=== PATIENT | female | born 1985 | race Caucasian/White ===

== ENCOUNTER 2018-07-04 20:06 | Emergency (ER) | payer SELFPAY ==
[2018-07-04 20:29] VITALS: RESP 18
--- NOTE | 2018-07-04 21:49 | ED PDOC ---
HPI: General Adult Time Seen by Provider: 07/04/18 21:44 Chief Complaint (Nursing): ENT Problem Chief Complaint (Provider): ENT problem History Per: Patient History/Exam Limitations: no limitations Onset/Duration Of Symptoms: Days (3x days) Current Symptoms Are (Timing): Still Present Additional Complaint(s): 32 year old female currently (last menstrual period February 26, 2018) presents to the ED for an evaluation of right ear pain that started x3 days ago. Patient reports that the pain radiates to her teeth and jaw. Patient reports taking Tylenol with no relief (last dose was 1x hour prior to arrival). Patient reports having mild throat pain and a dry cough as well. Otherwise: (-) fevers/chills, (-) related complaints. PMD: [facility] [place]. Past Medical History Reviewed: Historical Data, Nursing Documentation, Vital Signs Vital Signs: Last Vital Signs Temp 98.4 F 07/04/18 20:26 Pulse 101 H 07/04/18 20:26 Resp 18 07/04/18 20:26 BP 102/60 07/04/18 20:26 Pulse Ox 98 07/04/18 20:26 ELYSIA Report Viewed: Yes - Medical History PMH: No Chronic Diseases - Surgical History Surgical History: No Surg Hx - Family History Family History: States: No Known Family Hx - Social History Current smoker - smoking cessation education provided: No Alcohol: None Drugs: Denies - Home Medications Home Medications: Ambulatory Orders Medication Instructions Recorded Acetaminophen [Acetaminophen 8 650 mg PO Q8 PRN #21 tablet.er 07/04/18 Hour] RX: Amoxicillin 875 mg PO BID #14 tablet 07/04/18 - Allergies Allergies/Adverse Reactions: Allergies Allergy/AdvReac Type Severity Reaction Status Date / Time No Known Allergies Allergy Verified 07/04/18 20:26 Review of Systems ROS Statement: Except As Marked, All Systems Reviewed And Found Negative Constitutional: Negative for: Fever ENT: Positive for: Ear Pain (right), Throat Pain Respiratory: Positive for: Cough Gastrointestinal: Negative for: Abdominal Pain Physical Exam - Reviewed Nursing Documentation Reviewed: Yes Vital Signs Reviewed: Yes - Physical Exam Comments: GENERAL APPEARANCE: Patient is awake, alert, oriented x 3, in no acute distress. Resting comfortably. SKIN: Warm, dry; (-) cyanosis. ENMT: Canals : (-) cerumen impaction. TMs: Right TM: (+) bulging and (+) faintly erythematous, Left TM: (+) erythematous, non bulging, (-)effusion, (-) perforation,(-) vesicles. Frontal / maxillary sinuses : (-) tenderness. (-) TMJ tenderness. Pharynx: uvula midline (+) faintly erythematous, (-) exudate, (-) hypertrophy. Airway patent: (-) stridor. NECK: Supple, FROM (-) stiffness, (-) tenderness, (-) lymphadenopathy. LUNGS: clear to auscultation bilaterally, (-) wheezing, (-) rhonchi, (-) wheezing. CARDIAC: RRR ABDOMEN AND GI: Soft; (-) tenderness. - ECG O2 Sat by Pulse Oximetry: 98 (RA) Pulse Ox Interpretation: Normal Medical Decision Making Medical Decision Makin:45 Clinical impression: 32 year old female with otitis media and a sore throat. Initial plan: * amoxil 500 mg Cap 500 mg PO * throat culture * rapid strep group a antigen * reevaluation 2330 Rapid Strep: Negative Repeat HR: 88 On re-evaluation, patient reports improvement of symptoms. On exam, patient remains AAOx3, in no acute distress. Vitals stable. Lab/Diagnostic results d/w the patient in great detail. Diagnosis of otitis media, throat pain d/w the patient. Based on history, exam and diagnostic results, plan will be for outpatient follow up with PMD. Patient instructed to follow-up with pmd / referral provided / the clinic in 1- 2 days without fail. Advised to take medication as prescribed. Return to the emergency room at any time for any new or worsening symptoms. Patient states she fully agrees with and understands discharge instructions. States that she agrees with the plan and disposition. Verbalized and repeated discharge instructions and plan. I have given the patient opportunity to ask any additional questions. Scribe Attestation: Documented byMaren Marie, acting as a scribe for Maren Bustillo Provider Scribe Attestation: All medical record entries made by the Scribe were at my direction and personally dictated by me. I have reviewed the chart and agree that the record accurately reflects my personal performance of the history, physical exam, medical decision making, and the department course for this patient. I have also personally directed, reviewed, and agree with the discharge instructions and disposition. Disposition - Clinical Impression Clinical Impression: Otitis media, Right ear pain, Throat pain in adult - Patient ED Disposition Is Patient to be Admitted: No Counseled Patient/Family Regarding: Studies Performed, Diagnosis, Need For Followup, Rx Given - Disposition [facility] Disposition: Routine/Home Disposition Time: 23:30 Condition: STABLE Additional Instructions: The emergency medical care you received today was directed at your acute symptoms. If you were prescribed any medication, please fill it and take as directed. It may take several days for your symptoms to resolve. Return to the Emergency Department if your symptoms worsen, do not improve, or if you have any other problems. Please contact your doctor in 2 days for re-evaluation and follow up / or call one of the physicians/clinics you have been referred to that are listed on the Patient Visit Information form that is included in your discharge packet. Bring any paperwork you were given at discharge with you along with any medications you are taking to your follow up visit. Our treatment cannot replace ongoing medical care by a primary care provider (PCP) outside of the emergency department. Prescriptions: Acetaminophen [Acetaminophen 8 Hour] 650 mg PO Q8 PRN #21 tablet.er PRN Reason: Pain, Moderate (4-7) RX: Amoxicillin 875 mg PO BID #14 tablet Instructions: Ear Infections (Otitis Media), Sore Throat in Adults Forms: [employer] (Omani) Print Language: YAKUT - POA Present On Arrival: None Results - Lab Results Lab Results: 07/04/18 22:50 Grp A Beta Strep Ag Negative
[2018-07-04 23:37] VITALS: BP 110/64; PULSE 88; TEMP 98.1
[2018-07-08 04:42] VITALS: O2SAT 98
== END 2018-07-04 23:37 | disposition home or self-care (01) ==
LOC: H.ER 20:06
DX: H66.91 Otitis media, unspecified, right ear (principal); R07.0 Pain in throat

== ENCOUNTER 2018-11-19 08:00 | Emergency (ER) | payer SELFPAY ==
[2018-11-19 09:31] VITALS: BMI 23.7
[2018-11-19] MEDS ORDERED: Lactated Ringer's 1,000 ML IV SCH (09:45)
[2018-11-19 21:55] VITALS: BP 109/67; PULSE 70; RESP 18; TEMP 98.2; O2SAT 100
== END 2018-11-19 13:15 | disposition home or self-care (01) ==
LOC: H.EROB2 08:00
DX: O26.93 Pregnancy related conditions, unspecified, third trimester (principal); R10.2 Pelvic and perineal pain; M54.9 Dorsalgia, unspecified; Z3A.38 38 weeks gestation of pregnancy
CPT/HCPCS: 96360; 99283; J7120

== ENCOUNTER 2018-11-26 18:15 | Inpatient (IN) | payer MEDICAID, SELFPAY ==
[2018-11-26] MEDS ORDERED: Lactated Ringer's 1,000 ML IV ONE (19:04)
[2018-11-26 19:08] VITALS: BMI 24.0
[2018-11-26] MEDS ORDERED: Oxytocin 30 UNIT in NS 500 ml 30 UNITS/500 ML BAG IV ONE (19:09)
[2018-11-26] MEDS ORDERED: OXYTOCIN/0.9 % NS 20 UNIT/1,000 ML BAG IV ONE (19:10)
[2018-11-26] MEDS ORDERED: Lactated Ringer's 1,000 ML IV SCH (19:15)
[2018-11-26 19:40] LABS: BASO % 0.2 % (0.0-2.0); EOS # 0.1 K/uL (0.0-0.7); EOS % 0.5 % (0.0-4.0); HEMOGLOBIN 11.2 g/dL (12.0-16.0); LYMPH # 1.6 K/uL (1.0-4.3); LYMPH % 15.8 % (20.0-40.0); MEAN CELL VOLUME 90.4 fl (81.0-99.0); MEAN CORPUSCULAR HEMOGLOBIN 29.2 pg (27.0-31.0); MEAN CORPUSCULAR HGB CONC 32.3 g/dL (33.0-37.0); MEAN PLATELET VOLUME 12.4 fl (7.2-11.7); MONO # 0.9 K/uL (0.0-0.8); MONO % 8.5 % (0.0-10.0); NEUT # 7.7 K/uL (1.8-7.0); RBC 3.83 Mil/uL (3.80-5.20); RED CELL DISTRIBUTION WIDTH 15.1 % (11.5-14.5); WHITE BLOOD COUNT 10.3 K/uL (4.8-10.8)
--- NOTE | 2018-11-26 19:53 | OBHP ---
Datetime: 11/26/2018 19:37 IP Adm Impression: Term, intrauterine ; Intact Membranes IP Admit Plan: Admit to unit; Initiate labor protocol Admit Comment, IP Provider: Pt is a 33 yo IUP at EGA 39Wks EDC 12/03/18 based on LMP of 02/26/18 confirmed with 1st U/S done 06/09/18 presents to EDOB with c/o of contractions, that began at 7 AM w ere [id number], at 4pm they became Q5mins. Reports light pink vaginal bleeding. Denies LOF, Reports good movement. Pt reports she was told she should be induced at 39wks by MFM due to Gest DM. Denies fever, chills, PAGAN, dizziness, blurry vision, chest pain, SOB, N/V/D/C, dysuria, ROS: unremarkable, except as per HPI. Provider: [facility]- Dr. Momin OBALEXANDRAN: Gest DM, 2013 (no DM or complications), 1 IAB 08/2015, Pap NILM 07/11/18 PMH: Anemia FMH: Denies SURG: Denies ALL: NKDA SOCHx: Denies ETOH/drugs/Smoking MEDS: Vit, Ferrous Sulfate, Was taking Metformin 500mg BID last took at 35wks reports she was told she could stop LABS: HIV, HBsAg, GBS, GC/CHL, RPR all unremarkable. Rubella- Immune, AB +. PE GEN: NAD HEENT: NCAT RESP: CTA b/l, no wheezes rales or rhonchi CV: RRR, S1 S2 normal ABD: Gravid, BS + normal, soft to palpation, no tendernesss LE: No edema Bimanual- 3-4cm bulging membranes, 80% effaced, -1 station A/P Pt is a 33 yo IUP at EGA 39Wks EDC 12/03/18 based on LMP of 02/26/18 confirmed with 1st U/S do ne 06/09/18 presents to EDOB with c/o of contractions Q5mins apart Plan: -Admit to L _ D -Initiate Labor protocol -Bimanual- 3-4cm, bulging membranes, 80% effaced, -1 station -FHR and maternal monitoring -Pain control, Fluids -Regular diet -Fingerstick to assess for GDM Case seen and discussed with attending Dr Too Senior PGY1 Attending Note: Patient was seen and examined with resident and I agree with the above assessment. Extremities - PN: Normal Abdomen - PN: Normal Lungs - PN: Normal Heart - PN: Normal HEENT - PN: Normal General - PN: Normal FHR - Baseline A Provider: 140 Membranes, Provider: Bulging Contraction Comments Provider: Q3-5mins Comments, ACOG Physical Exam: GEN: NAD HEENT: NCAT RESP: CTA b/l, no wheezes rales or rhonchi CV: RRR, S1 S2 normal ABD: Gravid, BS + normal, soft to palpation, no tendernesss LE: No edema Bimanual- 3-4cm bulging membranes, 80% effaced, -1 station Pool Provider: Negative IP Hx Assessment: The History has been Reviewed and is Current EGA AdmitDate IP: 39.0 Vital Signs Provider: Reviewed; Within Normal Limits Vital Signs Provider Details: BP 111/72 IP Indication for Induction: Maternal Diabetes IP Chief Complaint: Uterine contractions NICHD Variability Prov Fetus A: Moderate 6-25bpm NICHD Accel Fetus A IP Provider: 15X15 FHR Category Provider Fetus A: Category I NICHD Decel Fetus A IP Provider: None Dilatation, Provider: 3-4 Effacement, Provider: 80 Station, Provider: -1 Datetime: 11/26/2018 19:21 Neurologic - PN: Normal Genitourinary Exam: Normal Datetime: 11/19/2018 09:09 Pelvic Type - PN: Adequate Back - PN: Normal Breast - PN: Not Done Thyroid - PN: Normal DTRs - PN: Not Done
[2018-11-26] MEDS ORDERED: Fentanyl/Bupivacaine HCl 250 ML EPI ONE (20:27)
[2018-11-26] MEDS ORDERED: Bupivacaine HCl 0.25% PF (10 ml) Inj ONE ×2 (21:02→21:58)
--- NOTE | 2018-11-26 21:39 | OBPN ---
Datetime: 11/26/2018 21:34 IP Progress Impression: Normal progression of labor IP Informed Consent Obtain: Vaginal Delivery IP Procedures: Artificial ROM IP Progress Plan: Continue present management Membranes, Provider: Ruptured Amniotic Fluid Color, Provider: Clear Contraction Comments Provider: q 2 mins FHR - Baseline A Provider: 135 IP Progress Note Comment: patient feeling increased pressure VE = 6/100/-1 FHR = 135 mod, +accels, no decels TOCO = no decels A/P 1. Patient progressing well, now 6cm dilated, AROM, clear 2. CEFM and TOCO 3. Re-evalauted as needed 4. Just received epidural for pain NICHD Accel Fetus A IP Provider: [id number] NICHD Variability Prov Fetus A: Moderate 6-25bpm Dilatation, Provider: 6 Effacement, Provider: 100 Station, Provider: -1 NICHD Decel Fetus A IP Provider: None Datetime: 11/26/2018 19:37 Pool Provider: Negative Vital Signs Provider: Reviewed; Within Normal Limits Vital Signs Provider Details: BP 111/72 FHR Category Provider Fetus A: Category I
--- NOTE | 2018-11-26 23:09 | OBDS ---
DELIVERY PERSONNEL Delivery Doctor: Lynette Cherry MD Survey Crew Chief: Analia Ulrich RN Anesthesiologist: Scott MATERNAL INFORMATION Delivery Anesthesia: Epidural Medications in Delivery: Oxytocin Placenta Cultured: No Maternal Complications: None Provider Comments: of live male infant over intact perineum in DAV followed by shoulders and re st of atraumatically, mouth and nose suctioned on mother's chest, cord clamped and cut, placed in warmer, placenta delivered spontaneously, fundus firm, 2nd degree laceration repaired with 2-0 and 3-0 vicryl rapide, EBl =75mL, pt tolerated procedure well LABOR SUMMARY EDC: 12/03/2018 00:00 No. Babies in Womb: 1 Attempted: No Labor Anesthesia: Epidural LABOR INFORMATION Reason for Induction: Not Applicable Onset of Labor: 11/26/2018 07:00 Oxytocin: N/A Group B Beta Strep: Negative Steroids Given: None Reason Steroids Not Administered: Not Applicable MEMBRANES Membranes Rupture Method: Artificial Rupture of Membranes: 11/26/2018 21:12 Amniotic Fluid Color: Clear Amniotic Fluid Amount: Moderate Amniotic Fluid Odor: Normal VAGINAL DELIVERY Episiotomy: None BABY A INFORMATION Method of Delivery: Vaginal Born in Route : No : N/A Forceps: N/A Vacuum Extraction: N/A Shoulder Dystocia : No PRESENTATION/POSITION BABY A Presentation: Cephalic Cephalic Presentation: Vertex PLACENTA INFORMATION BABY A Placenta Method of Delivery: Spontaneous Placenta Status: Delivered INFORMATION BABY A Gestational Age at Delivery: 39.0 Gestational Status: Term Infant Outcome : Liveborn Infant Condition : Stable Infant Sex: Male CORD INFORMATION BABY A No. Cord Vessels: 3 Cord Blood Taken: Yes Infant Suction: None
[2018-11-26] MEDS ORDERED: Oxycodone/Acetaminophen 5/325 mg Tab PO PRN (23:12)
[2018-11-26] MEDS ORDERED: Benzocaine/Menthol SPRAY TOP PRN (23:12)
[2018-11-27] MEDS ORDERED: Benzocaine/Menthol SPRAY TOP PRN (01:15)
[2018-11-27] MEDS ORDERED: Oxycodone/Acetaminophen 5/325 mg Tab PO PRN (01:15)
[2018-11-27 05:37] LABS: BASO % 0.2 % (0.0-2.0); EOS % 0.1 % (0.0-4.0); HEMOGLOBIN 10.8 g/dL (12.0-16.0); LYMPH # 1.5 K/uL (1.0-4.3); LYMPH % 10.2 % (20.0-40.0); MEAN CELL VOLUME 89.9 fl (81.0-99.0); MEAN CORPUSCULAR HGB CONC 32.2 g/dL (33.0-37.0); MEAN PLATELET VOLUME 12.4 fl (7.2-11.7); MONO # 0.9 K/uL (0.0-0.8); NEUT # 12.5 K/uL (1.8-7.0); NEUT % 83.5 % (50.0-75.0); NRBC % 0.1 % (0.0-0.0); RBC 3.72 Mil/uL (3.80-5.20); RED CELL DISTRIBUTION WIDTH 15.2 % (11.5-14.5)
--- NOTE | 2018-11-27 07:48 | OBPPN ---
Datetime: 11/27/2018 06:38 PP Pain Prov: Within normal limits PP Nausea Prov: Denies PP Flatus Prov: Yes PP BM Prov: No PP Breasts Prov: Not Done PP Heart Prov: Normal PP Lungs Prov: Normal PP Abdomen/Uterus Prov: Normal PP Lochia Prov: Normal PP Vulva/Perineum Prov: Not Done PP CVA Tenderness Prov: Normal PP Extremities Prov: Normal PP C/S Incision Prov: Not Applicable PP Progress Prov: Normal PP Impression Prov: Normal progression PP Plan Prov: Continue present management PP Progress Note Prov: 33 year old PPD1 s/p on 11/26/18 @ 39wks. Pt was seen and examined at bedside this AM. Pt is ambulating w/o difficulty and tolerating regular PO diet. Pt is breast fee ding without difficulty. Lochia is similar menses. + Flatus, - BM. Denies fevers, chills, dizziness, chest pain, SOB, nausea, vomiting, or dysuria. Gen: NAD HEENT: NCAT, EOMI Cardio: + S1S2, RRR Lungs: CTA B/L, no wheezes, rales or rhonchi Abd: soft, normal bowel sounds, mild appropriate tenderness to palpation lower abdomen, no rigidit y, no guarding, UB firm below level of umbilicus Ext: no pitting edema B/L LE, calves non tender to palpation H _ H: aCBC: 11.2/ 34.6, pCBC: 10.8/33.5 Assessment: 33 year old PPD1 s/p on 11/26/18 @ 39wks. Clinically stable. Plan: -Gave Percocet prn for better pain control -Encouraged and ambulation -Script in chart for Ibuprofen 600mg 1 tab Q 6h PRN mild pain #30 No refills -Continue vitamin - Anticipated D/C today 11/28/18 -Undecided about contraception at this time. -Pt will be seen at the [facility] in 6 week PP visit and visit in 2-3 day s. Emailed Nayeli, pt will call in AM as well. -Nisreen Lopez, PGY 1 OB hsopitalist Addendum: Pt seen and examined by me. Agree w/ above. PPD 1 s/p , doing well, breast feeidng. Continue currrent care. (ES) IP PP Procedures: None Vital Signs Provider PP: Reviewed; Within Normal Limits
[2018-11-27] MEDS: Multivitamin With Minerals Tab PO SCH (08:04)
[2018-11-27] MEDS ORDERED: Multivitamin With Minerals Tab PO SCH (09:00)
--- NOTE | 2018-11-28 09:46 | OBPPN ---
Datetime: 11/28/2018 05:49 PP Pain Prov: Within normal limits PP Nausea Prov: Denies PP Flatus Prov: Yes PP BM Prov: Yes PP Breasts Prov: Not Done PP Heart Prov: Normal PP Lungs Prov: Normal PP Abdomen/Uterus Prov: Normal PP Lochia Prov: Normal PP Vulva/Perineum Prov: Not Done PP CVA Tenderness Prov: Normal PP Extremities Prov: Normal PP C/S Incision Prov: Not Applicable PP Progress Prov: Normal PP Comments Phys Exam Prov: Mild musculoskeletal pain on left hip flexor; ROM and strength intact - pt believes to be from labor PP Impression Prov: Normal progression PP Plan Prov: Continue present management; Discharge PP Progress Note Prov: 33 year old PPD2 s/p on 11/26/18 @ 39wks. Pt was seen and examined at bedside this AM. Pt is ambulating w/o difficulty and tolerating regular PO diet. Pt is breast fee ding without difficulty. Lochia is similar menses. + Flatus, - BM. Denies fevers, chills, dizziness, chest pain, SOB, nausea, vomiting, or dysuria. Gen: NAD HEENT: NCAT, EOMI Cardio: + S1S2, RRR Lungs: CTA B/L, no wheezes, rales or rhonchi Abd: soft, normal bowel sounds, mild appropriate tenderness to palpation lower abdomen, no rigidit y, no guarding, UB firm below level of umbilicus Ext: no pitting edema B/L LE, calves non tender to palpation H _ H: aCBC: 11.2/ 34.6, pCBC: 10.8/33.5 Assessment: 33 year old PPD1 s/p on 11/26/18 @ 39wks. Clinically stable. Plan: - Regular Diet -Encouraged and ambulation -Script in chart for Ibuprofen 600mg 1 tab Q 6h PRN mild pain #30 No refills, ferrous sulfate and colace -Continue vitamin - Anticipated D/C today 11/28/18 -Undecided about contraception at this time. -Pt will be seen at the [facility] in 6 week PP visit and visit in 2-3 day s. Emailed Nayeli on 11/26/18, pt will call in AM as well. -Marylin Anderson, PGY 1 Case discussed with attending Patient seen and examined by me this am. Agree with above. Patient for discharge home today. RTC i n 6wks for visit. Continue pelvic rest. --Dr. Ambrocio IP PP Procedures: None Vital Signs Provider PP: Reviewed; Within Normal Limits
--- NOTE | 2018-11-28 09:46 | OBDCSUM ---
Datetime: 11/28/2018 05:51 Discharged to, Provider: Home Follow up at, Provider: [facility]ILY Disch Instr Activity: Normal activity Disch Instr Diet: Regular Discharge Instructions, Provider: Routine instructions given Discharge Time: 11/28/2018 08:12 Follow up in weeks, Provider: 6 weeks Disch Referrals: None Contraception discussed, Prov: Yes Disch Activity Restrictions: No exercising; No lifting; No sexual activity; Nothing in vagina - Inte rcourse, tampons, douche Discharge Comment, Provider: 33 yo , s/p on 11/26/18 at 39 EGA : Male, Wt: 3230 gm, 9/9 born [birth year] @ 2244 was complicated by GDM. Post- D/C Summary: No OB complications. No complications during post- period. Lochia i s less than menses. Pt able to pass flatus, no BM as of yet, voiding well and able to ambulate withou t difficulty. Tolerating regular diet w/o N/V. Fundus firm below umbilicus level. Discharge Instructions given to patient: Encourage PNV 1 tab po q/day Ibuprofen 600 mg 1 tab po prn q4-6 if moderate pain. Ferrous sulfate 325mg BID Colace 100mg BID C/W PN vitamin 1 tab QD Ambulatory with caution, nothing per vagina/sex for 4 weeks, no heavy lifting, avoid stairs, if ex cessive bleeding or fever without relief from Tylenol go to ED ED precautions: If excessive bleeding, pain that does not get relief, fever >100.4, palpitations, SOB, CP or other concerning symptom go to the ED. PT was urged if feeling sad, mood swing, depression, neglect of baby, suicidal thoughts, homicidal thoughts go to ER or call 911 for help Nayeli Conway emailed for an appointment for patient to have follow up in 6 weeks. Was also emailed for visit within 1 week. -Marylin Anderson PGY1 Case discussed with attending. Contraception after Delivery: Undecided
[2018-11-28] MEDS: Multivitamin With Minerals Tab PO SCH (10:10)
[2018-11-28 16:00] VITALS: BP 104/62; PULSE 70; RESP 19; TEMP 98.1; O2SAT 100
== END 2018-11-28 10:50 | disposition home or self-care (01) | DRG 560 ==
LOC: H.EROB2 18:15 → H.L&D 19:05 → H.OB/GYN 11-27 00:45
PROVIDERS: ADMIT Obstetrics & Gynecology; ATTEND Obstetrics & Gynecology
PROC: 10E0XZZ Delivery of Products of Conception, External Approach (ICD-10-PCS; principal; 2018-11-26)
PROC: 0KQM0ZZ Repair Perineum Muscle, Open Approach (ICD-10-PCS; 2018-11-26)
PROC: 10907ZC Drainage of Amniotic Fluid, Therapeutic from Products of Conception, Via Natural or Artificial Opening (ICD-10-PCS; 2018-11-26)
PROC: 4A1HXCZ Monitoring of Products of Conception, Cardiac Rate, External Approach (ICD-10-PCS; 2018-11-26)
DX: O24.429 Gestational diabetes mellitus in childbirth, unspecified control (principal); O70.1 Second degree perineal laceration during delivery; Z37.0 Single live birth; Z3A.39 39 weeks gestation of pregnancy